=== PATIENT | female | born 1995 | race Two or more races ===

== ENCOUNTER 2018-04-20 00:29 | Emergency (ER) | payer MEDICAID ==
[~2018-04-20] VITALS: Ht 152.4 cm; Wt 53.5 kg
[2018-04-20] MEDS ORDERED: LORAZEPAM 0.5 MG TABLET PO ONE (01:00)
[2018-04-20] MEDS ORDERED: LORAZEPAM 1 MG TABLET ONE (01:09)
[2018-04-20 01:24] LABS: BASOPHILS % (AUTO) 0.2 % (0.0-2.0); EOSINOPHILS # (AUTO) 0.1 K/uL (0.0-0.7); EOSINOPHILS % (AUTO) 1.8 % (0.0-7.0); HEMATOCRIT 42.7 % (31.2-41.9); HEMOGLOBIN 14.8 g/dL (10.9-14.3); LYMPHOCYTES # (AUTO) 1.3 K/uL (20.0-40.0); MEAN CORPUSCULAR HEMOGLOBIN 30.1 uug (24.7-32.8); MEAN CORPUSCULAR HGB CONC 35 g/dL (32.3-35.6); MEAN CORPUSCULAR VOLUME 87.1 fL (75.5-95.3); MONOCYTES # (AUTO) 0.3 K/uL (2.0-10.0); MONOCYTES % (AUTO) 4.6 % (0.0-11.0); NEUTROPHILS # (AUTO) 3.8 K/uL (1.8-8.9); NEUTROPHILS % (AUTO) 69.4 % (38.5-71.5); PLATELET COUNT (AUTO) 216 K/uL (179-408); WHITE BLOOD COUNT (AUTO) 5.5 K/uL (3.8-11.8)
[2018-04-20 01:28] LABS: CREATININE 0.9 mg/dL (0.6-1.3); POTASSIUM 3.6 mmol/L (3.5-5.1)
[2018-04-20 01:34] LABS: BILIRUBIN,DIRECT 0.1 mg/dL (0.0-0.2); BILIRUBIN,TOTAL 0.4 mg/dL (0.2-1.0); TOTAL PROTEIN, SERUM 8.5 g/dL (6.4-8.2)
[2018-04-20 01:59] LABS: THYROID STIMULATING HORMONE 0.747 mIU/mL (0.358-3.740)
[2018-04-20] MEDS ORDERED: IV NORMAL SALINE 1000 ML BAG IV ONE (02:15)
--- NOTE | 2018-04-20 02:56 | NUR ---
IV removed. Catheter intact and site benign. Pressure and 4x4 gauze applied to site. No bleeding noted.
[2018-04-20 02:57] VITALS: BP 110/79
--- NOTE | 2018-04-20 02:58 | NUR ---
Patient discharged to home in stable conditon. Written and verbal after care instructions given. Patient verbalizes understanding of instructions. Pt ambulated out of ER in steady gait accompanied by friend who will drive home. All belongings with pt. VSS. NAD noted.
== END 2018-04-20 03:00 | disposition home or self-care (01) ==
LOC: ER 00:33
DX: F41.0 Panic disorder [episodic paroxysmal anxiety] (principal); E86.0 Dehydration; F12.10 Cannabis abuse, uncomplicated
CPT/HCPCS: 36415; 71045; 80048; 80076; 84443; 84703; 85025; 96360; 99285; A4663; J7030